=== PATIENT | female | born 1980 | race Caucasian/White ===

== ENCOUNTER → 2017-02-14 | Outpatient (CLI) | payer BC ==
[2013-12-17 13:32] VITALS: BP 110/70
[2017-02-14 07:55] LABS: BASOPHILS # (AUTO) 0.1 X10^3/uL (0.0-0.1); BASOPHILS % (AUTO) 1.4 % (0.2-1.0); EOSINOPHILS # (AUTO) 0.2 x10^3/uL (0.0-0.2); EOSINOPHILS % (AUTO) 1.9 % (0.9-2.9); HEMATOCRIT 36.8 % (36.0-47.0); HEMOGLOBIN 12.5 g/dL (12.0-16.0); LYMPHOCYTES # (AUTO) 2.3 X10^3/uL (1.3-2.9); LYMPHOCYTES % (AUTO) 28.1 % (21.0-51.0); MEAN CORPUSCULAR VOLUME 82.3 fL (80.0-100.0); MEAN PLATELET VOLUME 8.6 fL (7.4-11.0); MONOCYTES # (AUTO) 0.4 x10^3/uL (0.3-0.8); MONOCYTES % (AUTO) 4.3 % (0.0-13.0); NEUTROPHILS # (AUTO) 5.3 x10^3/uL (2.2-4.8); NEUTROPHILS % (AUTO) 64.3 % (42.0-75.0); PLATELET COUNT 200 X10^3/uL (150.0-450.0); RED BLOOD COUNT 4.47 X10^6/uL (3.5-5.4); WHITE BLOOD COUNT 8.2 X10^3/uL (3.6-10.0)
[2017-02-14 07:56] LABS: BILIRUBIN,URINE NEGATIVE (NEGATIVE); BLOOD/HEMOGLOBIN,URINE NEGATIVE (NEGATIVE); GLUCOSE, URINE NEGATIVE (NEGATIVE); KETONES,URINE NEGATIVE (NEGATIVE); LEUKOCYTE ESTERASE ,URINE 1+ (NEGATIVE); NITRITES,URINE NEGATIVE (NEGATIVE); PROTEIN,URINE NEGATIVE (NEGATIVE); UROBILINOGEN,URINE NORMAL (NORMAL)
[2017-02-14 08:02] LABS: CREATININE,URINE 111.22 mg/dL (29-226); MICROALBUM/CREATININE RATIO,UR 3 mg/g cre (0-29); MICROALBUMIN,URINE 3.4 mg/L
[2017-02-14 08:03] LABS: HEMOGLOBIN A1C 7.3 % (4.5-6.2)
[2017-02-14 08:12] LABS: ALANINE AMINOTRANSFERASE 29 Units/L (12-78); ALBUMIN 3.3 g/dL (3.4-5.0); ALKALINE PHOSPHATASE 174 Units/L (46-116); ASPARTATE AMINO TRANSFERASE 23 Units/L (15-37); BLOOD UREA NITROGEN 14 mg/dL (7-18); CALCIUM 8.4 mg/dL (8.5-10.1); CARBON DIOXIDE 22.7 mmol/L (21-32); CHLORIDE 106 mmol/L (98-107); CHOL/HDL RATIO 6.9 (0.0-5.0); CHOLESTEROL 192 mg/dL (0-200); COR NA(FOR HYPERGLY) 140 mmol/L (136-145); CREATININE 0.64 mg/dL (0.55-1.02); GLUCOSE 142 mg/dL (65-99); HDL CHOLESTEROL 28 mg/dL (40-60); SODIUM 139 mmol/L (136-145); T4 (THYROXINE) 6.6 ug/dL (4.7-13.3); TOTAL PROTEIN 7.4 g/dL (6.4-8.2); TRIGLYCERIDES 289 mg/dL (0-150); TSH (3RD GENERATION) 1.679 uIU/mL (0.358-3.74); eGFR BLACK RACES > 60 (>60); eGFR NON BLACK RACES > 60 (>60)
[2017-02-14 08:34] LABS: APPEARANCE,URINE SLIGHTLY HAZY (CLEAR); COLOR,URINE YELLOW (YELLOW); RBC,URINE NONE SEEN /HPF (NEGATIVE)
[2017-02-14 08:35] LABS: BACTERIA,URINE 2+ /HPF (NEGATIVE); SQUAMOUS EPITHELIAL CELL,UR MANY /HPF (NEGATIVE)
== END ==
LOC: LAB 07:23
PROVIDERS: ATTEND Internal Medicine
DX: Z79.899 Other long term (current) drug therapy (principal); E03.8 Other specified hypothyroidism; E78.2 Mixed hyperlipidemia; E11.9 Type 2 diabetes mellitus without complications
CPT/HCPCS: 36415; 80053; 80061; 81001; 82043; 83036; 84436; 84443; 85025

== ENCOUNTER → 2017-03-27 | Outpatient (CLI) | payer BC ==
[2013-12-17 13:32] VITALS: BP 110/70
== END ==
LOC: RAD 13:24
PROVIDERS: ATTEND Internal Medicine
DX: R00.0 Tachycardia, unspecified (principal); I49.3 Ventricular premature depolarization
CPT/HCPCS: 93306

== ENCOUNTER → 2017-06-20 | Outpatient (CLI) | payer BC ==
[2013-12-17 13:32] VITALS: BP 110/70
[2017-06-20 07:35] LABS: BASOPHILS % (AUTO) 0.5 % (0.2-1.0); EOSINOPHILS # (AUTO) 0.2 x10^3/uL (0.0-0.2); EOSINOPHILS % (AUTO) 2.4 % (0.9-2.9); HEMATOCRIT 38.7 % (36.0-47.0); LYMPHOCYTES % (AUTO) 25.3 % (21.0-51.0); MEAN CORPUSCULAR HEMOGLOBIN 28.4 pg (27.0-34.0); MEAN CORPUSCULAR HGB CONC 33.7 g/dL (33.0-35.0); MEAN CORPUSCULAR VOLUME 84.1 fL (80.0-100.0); MEAN PLATELET VOLUME 8.6 fL (7.4-11.0); MONOCYTES # (AUTO) 0.3 x10^3/uL (0.3-0.8); MONOCYTES % (AUTO) 4.2 % (0.0-13.0); NEUTROPHILS # (AUTO) 5.3 x10^3/uL (2.2-4.8); NEUTROPHILS % (AUTO) 67.6 % (42.0-75.0); PLATELET COUNT 238 X10^3/uL (150.0-450.0); RED CELL DISTRIBUTION WIDTH 13.6 % (11.6-16.5); WHITE BLOOD COUNT 7.8 X10^3/uL (3.6-10.0)
[2017-06-20 07:58] LABS: ALANINE AMINOTRANSFERASE 38 Units/L (12-78); ALBUMIN 3.6 g/dL (3.4-5.0); ALKALINE PHOSPHATASE 176 Units/L (46-116); ASPARTATE AMINO TRANSFERASE 28 Units/L (15-37); BLOOD UREA NITROGEN 13 mg/dL (7-18); CALCIUM 9.2 mg/dL (8.5-10.1); CARBON DIOXIDE 26.3 mmol/L (21-32); CHLORIDE 101 mmol/L (98-107); CHOL/HDL RATIO 6.1 (0.0-5.0); CHOLESTEROL 200 mg/dL (0-200); COR NA(FOR HYPERGLY) 139 mmol/L (136-145); CREATININE 0.89 mg/dL (0.55-1.02); FREE T4 (FREE THYROXINE) 0.85 ng/dL (0.76-1.46); HDL CHOLESTEROL 33 mg/dL (40-60); SODIUM 137 mmol/L (136-145); TRIGLYCERIDES 207 mg/dL (0-150); TSH (3RD GENERATION) 1.932 uIU/mL (0.358-3.74); eGFR BLACK RACES > 60 (>60); eGFR NON BLACK RACES > 60 (>60)
[2017-06-20 09:34] LABS: BILIRUBIN,URINE NEGATIVE (NEGATIVE); BLOOD/HEMOGLOBIN,URINE 1+ (NEGATIVE); GLUCOSE, URINE 2+ (NEGATIVE); KETONES,URINE 1+ (NEGATIVE); LEUKOCYTE ESTERASE ,URINE NEGATIVE (NEGATIVE); NITRITES,URINE NEGATIVE (NEGATIVE); PROTEIN,URINE 1+ (NEGATIVE); UROBILINOGEN,URINE 1+ (NORMAL)
[2017-06-20 09:35] LABS: CREATININE,URINE 206.07 mg/dL (29-226); MICROALBUM/CREATININE RATIO,UR 6 mg/g cre (0-29); MICROALBUMIN,URINE 13.1 mg/L
[2017-06-20 09:52] LABS: APPEARANCE,URINE CLEAR (CLEAR); BACTERIA,URINE 1+ /HPF (NEGATIVE); COLOR,URINE YELLOW (YELLOW); MUCUS,URINE FEW /HPF (NEGATIVE); SQUAMOUS EPITHELIAL CELL,UR MODERATE /HPF (NEGATIVE)
[2017-06-20 10:25] LABS: HEMOGLOBIN A1C 7.1 % (4.5-6.2)
== END ==
LOC: LAB 07:09
PROVIDERS: ATTEND Internal Medicine
DX: Z79.899 Other long term (current) drug therapy (principal); E11.9 Type 2 diabetes mellitus without complications; E03.8 Other specified hypothyroidism; E78.2 Mixed hyperlipidemia
CPT/HCPCS: 36415; 80053; 80061; 81001; 82043; 83036; 84439; 84443; 85025

== ENCOUNTER → 2017-07-10 | Outpatient (CLI) | payer BC ==
[2013-12-17 13:32] VITALS: BP 110/70
--- NOTE | 2017-07-10 11:17 | CT ---
HISTORY: Headache, history of migraines Study: CT of the brain Comparison: None Technique: Serial axial images were obtained from the skullbase to the vertex without infusion of IV contrast. Dose reduction techniques including automated exposure control (AEC) and adjustment of mA a nd kV were utilized. Findings: The ventricles, sulci, and cisterns are grossly unremarkable in appearance. No evidence of significan t midline shift or acute intracranial hemorrhage is appreciated. No definite extra-axial fluid collec tions are noted. The visualized paranasal sinuses are grossly unremarkable. Rightward deviation of th e bony nasal septum is noted. If symptoms or clinical concern persist recommend continued follow-up f or further evaluation. IMPRESSION: No CT evidence of acute intracranial abnormality is appreciated. Reported By:
== END ==
LOC: RAD 10:36
PROVIDERS: ATTEND Internal Medicine
DX: G44.89 Other headache syndrome (principal)
CPT/HCPCS: 70450

== ENCOUNTER → 2017-09-26 | Outpatient (CLI) | payer BC ==
[2013-12-17 13:32] VITALS: BP 110/70
[~2017-09-26] MED LIST: NS 100 ML IV 100 ML IV ONE
--- NOTE | 2017-09-26 11:03 | CT ---
CT neck soft tissues with contrast Indication: Swelling of the right neck with lymphadenopathy Technique: Helical CT images of the neck soft tissues were obtained with IV contrast. Reformatted lavinia ges in the coronal and sagittal planes were also generated for review. Comparison: None Findings: A superficial skin marker overlies the right submandibular region. No underlying fluid collection, si gnificant inflammatory changes or discrete mass lesion is identified. The nasopharynx and oropharynx are normal in appearance. The base of the tongue and lymphoid tissue within Waldeyer's ring are paulina l. The hypopharynx and larynx appear normal. No discrete mass or lymphadenopathy is identified in the neck. The parotid, submandibular, and thyroid glands appear normal. Included portions of the brain and skull base appear normal. Bone windows demonstrates no acute or ag gressive osseous abnormality. The visualized lung apices are clear. Impression: No significant abnormality identified in the patient's area of concern. Reported By:
== END ==
LOC: RAD 09-25 08:13
PROVIDERS: ATTEND Nurse Practitioner
DX: R59.0 Localized enlarged lymph nodes (principal)
CPT/HCPCS: 70491; A4222

== ENCOUNTER → 2017-10-07 | Outpatient (CLI) | payer BC ==
[2013-12-17 13:32] VITALS: BP 110/70
--- NOTE | 2017-10-08 09:27 | MG ---
HISTORY: SCREENING Comparison: July 23, 2012 and August 01, 2012 FINDINGS: Bilateral CC and MLO projections of the right and left breast were obtained. Scattered fibroglandula r tissue is seen to be present. No dominant suspicious architectural distortion, mass or clustered m icrocalcifications can be observed to suggest malignancy. However, there are developing partially ob scured and partially circumscribed sub cm isodense nodules between 8 and 10 o'clock bilaterally in th e lateral right and medial left breast most likely reflecting benign cysts but for which further imag ing evaluation is recommended to confirm benign features and exclude a solid mass. No skin thickening or nipple retraction is appreciated. No pathological lymphadenopathy can be identified. Benign-jerson earing calcifications are noted within the right and left breast. IMPRESSION: Bilateral breast nodules at 8-10 o'clock for which targeted sonography is recommended. ACR CATEGORY 0 - assessment incomplete; additional imaging recommended. Diagnostic CAD was utilized and reviewed. * 0 (ZERO) - ASSESSMENT INCOMPLETE; ADDITIONAL IMAGING IS NEEDED. * 1/1 (ONE) - NEGATIVE. * 2/II (TWO) - BENIGN FINDINGS. * 3/III (THREE) - PROBABLY BENIGN FINDING; SHORT INTERVAL FOLLOW-UP SUGGESTED. * 4/IV (FOUR) - SUSPICIOUS ABNORMALITY; BIOPSY SHOULD BE CONSIDERED. * 5/V - HIGHLY SUSPICIOUS OF MALIGNANCY; BIOPSY SHOULD BE PERFORMED. A NEGATIVE X-RAY REPORT SHOULD NOT DELAY BIOPSY IF A DOMINANT OR CLINICALLY SUSPICIOUS MASS IS PRESENT; 4 TO 8 PERCENT OF CANCERS ARE NOT IDENTIFIED BY X-RAY. A NEGA TIVE REPORT MAY REINFORCE THE CLINICAL IMPRESSION. ADENOSIS AND DENSE BREASTS MAY OBSCURE AN UNDERLY ING NEOPLASM. Reported By:
== END ==
LOC: RAD 14:13
PROVIDERS: ATTEND Internal Medicine
DX: Z12.31 Encounter for screening mammogram for malignant neoplasm of breast (principal)
CPT/HCPCS: 77067

== ENCOUNTER → 2017-10-15 | Outpatient (CLI) | payer BC ==
[2013-12-17 13:32] VITALS: BP 110/70
--- NOTE | 2017-10-15 13:26 | US ---
HISTORY: Bilateral breast nodules Study: Bilateral breast sonogram Comparison: Screening mammogram performed on 10/07/2017 Technique: Multiple grayscale and color flow images of the bilateral breasts were obtained. Findings: Imaging of the right breast demonstrates a smoothly marginated and gently lobulated parenchymal cyst located at the 8 o'clock position and corresponding to 1 of the mammographic nodular densities. The c yst measures approximately 4 mm x 9 mm x 6 mm in greatest dimensions. There is increased through yeung smission. Intracystic debris is visualized as well as eccentric mild wall thickening. This cystic les ion is favored to represent a small complicated cyst. An additional small complicated cyst is identif ied at the 9 o'clock position of the right breast and measures 5 mm x 2 mm in greatest dimensions. In tracystic debris is visualized within the smaller cyst as well. A small complicated cyst containing i ntracystic debris is present at the 10 o'clock position of the right breast and measures 2 mm x 3 mm in greatest dimensions. An additional mildly complicated cyst is present at the 10 o'clock position o f the right breast and measures 5 mm x 6 mm x 7 mm. This cyst contains intracystic debris and very mi ld wall thickening as well. Imaging of the left breast demonstrates a mildly complicated cyst located at 9 o'clock position and measuring 7 mm x 7 mm in greatest dimensions. There is increased through t ransmission as well as intracystic debris and eccentric mild thickening. An additional mildly complic ated cyst is identified at the 9 o'clock central left breast and measures 6 mm x 6 mm in greatest dim ensions. IMPRESSION: 1. Bilateral complicated cysts containing intracystic debris and very mild wall thickening as describ ed above. Short interval sonographic follow-up in 6 months is recommended in order to document stabil ity given the mild complexity. BI-RADS category 3-probably benign findings; short interval follow-up suggested Targeted sonography of the bilateral breasts recommended in 6 months Reported By:
== END | disposition home or self-care (01) | DRG 951 ==
LOC: RAD 11:58
PROVIDERS: ATTEND Specialist
DX: Z12.31 Encounter for screening mammogram for malignant neoplasm of breast (principal); N63.20 Unspecified lump in the left breast, unspecified quadrant; N63.10 Unspecified lump in the right breast, unspecified quadrant; N60.02 Solitary cyst of left breast; N60.01 Solitary cyst of right breast
CPT/HCPCS: 76642

== ENCOUNTER → 2017-10-28 | Outpatient (CLI) | payer BC ==
[2013-12-17 13:32] VITALS: BP 110/70
[2017-10-28 07:35] LABS: BASOPHILS % (AUTO) 0.5 % (0.2-1.0); EOSINOPHILS # (AUTO) 0.1 x10^3/uL (0.0-0.2); EOSINOPHILS % (AUTO) 1.8 % (0.9-2.9); HEMATOCRIT 38.8 % (36.0-47.0); HEMOGLOBIN 12.9 g/dL (12.0-16.0); LYMPHOCYTES # (AUTO) 2.2 X10^3/uL (1.3-2.9); LYMPHOCYTES % (AUTO) 28.2 % (21.0-51.0); MEAN CORPUSCULAR HEMOGLOBIN 27.3 pg (27.0-34.0); MEAN CORPUSCULAR HGB CONC 33.2 g/dL (33.0-35.0); MEAN CORPUSCULAR VOLUME 82.2 fL (80.0-100.0); MEAN PLATELET VOLUME 8.3 fL (7.4-11.0); MONOCYTES # (AUTO) 0.3 x10^3/uL (0.3-0.8); MONOCYTES % (AUTO) 4.5 % (0.0-13.0); PLATELET COUNT 258 X10^3/uL (150.0-450.0); RED BLOOD COUNT 4.72 X10^6/uL (3.5-5.4); RED CELL DISTRIBUTION WIDTH 13.4 % (11.6-16.5); WHITE BLOOD COUNT 7.6 X10^3/uL (3.6-10.0)
[2017-10-28 07:55] LABS: ALANINE AMINOTRANSFERASE 28 Units/L (12-78); ALBUMIN 3.6 g/dL (3.4-5.0); ALKALINE PHOSPHATASE 172 Units/L (46-116); ASPARTATE AMINO TRANSFERASE 17 Units/L (15-37); BLOOD UREA NITROGEN 11 mg/dL (7-18); CALCIUM 8.5 mg/dL (8.5-10.1); CARBON DIOXIDE 23.4 mmol/L (21-32); CHLORIDE 100 mmol/L (98-107); CHOL/HDL RATIO 7.6 (0.0-5.0); CHOLESTEROL 221 mg/dL (0-200); COR NA(FOR HYPERGLY) 138 mmol/L (136-145); CREATININE 0.77 mg/dL (0.55-1.02); FREE T4 (FREE THYROXINE) 0.92 ng/dL (0.76-1.46); HDL CHOLESTEROL 29 mg/dL (40-60); SODIUM 136 mmol/L (136-145); TOTAL PROTEIN 8.3 g/dL (6.4-8.2); TRIGLYCERIDES 288 mg/dL (0-150); TSH (3RD GENERATION) 3.215 uIU/mL (0.358-3.74); eGFR BLACK RACES > 60 (>60); eGFR NON BLACK RACES > 60 (>60)
[2017-10-28 10:25] LABS: BILIRUBIN,URINE NEGATIVE (NEGATIVE); BLOOD/HEMOGLOBIN,URINE NEGATIVE (NEGATIVE); GLUCOSE, URINE 4+ (NEGATIVE); KETONES,URINE NEGATIVE (NEGATIVE); LEUKOCYTE ESTERASE ,URINE NEGATIVE (NEGATIVE); NITRITES,URINE NEGATIVE (NEGATIVE); PROTEIN,URINE NEGATIVE (NEGATIVE); UROBILINOGEN,URINE NORMAL (NORMAL)
[2017-10-28 10:28] LABS: APPEARANCE,URINE CLEAR (CLEAR); COLOR,URINE YELLOW (YELLOW)
[2017-10-28 10:35] LABS: CREATININE,URINE 99.83 mg/dL (29-226); MICROALBUM/CREATININE RATIO,UR 6 mg/g cre (0-29); MICROALBUMIN,URINE 6.1 mg/L
== END ==
LOC: LAB 07:11
PROVIDERS: ATTEND Internal Medicine
DX: Z79.899 Other long term (current) drug therapy (principal); E11.9 Type 2 diabetes mellitus without complications; E78.2 Mixed hyperlipidemia; E03.8 Other specified hypothyroidism
CPT/HCPCS: 36415; 80053; 80061; 81003; 82043; 83036; 84439; 84443; 85025